=== PATIENT | female | born 1955 | race Caucasian/White ===

== ENCOUNTER 2019-07-10 08:31 | Day surgery (SDC) | payer OTHER ==
[~2019-07-10] VITALS: Ht 154.9 cm; Wt 59.4 kg
[2019-07-10] MEDS ORDERED: fentaNYL 0.05 MG/ML VIAL ONE (11:40)
[2019-07-10] MEDS ORDERED: LIDOCAINE 2% 100 MG/5 ML UJET TP ONE (11:40)
== END 2019-07-10 12:38 | disposition home or self-care (01) ==
LOC: MOR 08:31 → MTU 08:35 → MOR 12:38
PROVIDERS: ATTEND Internal Medicine Gastroenterology
DX: Z12.11 Encounter for screening for malignant neoplasm of colon (principal); D12.5 Benign neoplasm of sigmoid colon; K57.30 Diverticulosis of large intestine without perforation or abscess without bleeding; K64.8 Other hemorrhoids; I10 Essential (primary) hypertension; E78.00 Pure hypercholesterolemia, unspecified; E11.9 Type 2 diabetes mellitus without complications; Z79.84 Long term (current) use of oral hypoglycemic drugs; Z79.899 Other long term (current) drug therapy
CPT/HCPCS: 45385; J3010